=== PATIENT | female | born 1970 | race Caucasian/White ===

== ENCOUNTER → 2017-09-04 | Outpatient (CLI) | payer OTHER ==
[~2017-09-04] MED LIST: PREN1TAB49 PO
--- NOTE | 2017-09-04 10:42 | RADRPT ---
PROCEDURE: Left knee radiographs. CLINICAL INDICATION: Left knee pain. TECHNIQUE: 3 views. Weight bearing. Frontal, lateral, and oblique. The patient was unable to acco mplish sunrise view positioning. COMPARISON: 04/08/2016. FINDINGS: There is no fracture or dislocation. There is diffuse osteopenia. Articular surfaces are intact. There is no lytic or blastic lesion. There is no radiopaque foreign body. IMPRESSION: 1. Diffuse osteopenia. 2. Otherwise unremarkable images of the left knee. RPTAT: QQ .Pastor Andrew MD, MD Date Time Electronically viewed and signed by .Pastor Andrew MD, MD on 09/04/2017 10:42 .R/
--- NOTE | 2017-09-04 11:54 | HKNOTE ---
DATE OF SERVICE: 09/04/2017 CHIEF COMPLAINT: Left knee pain. HISTORY OF PRESENT ILLNESS: This is a 47-year-old female who states that approximately over one mon th ago she was walking down the stairs when she missed a step. She fell backwards. Her left kneeca p came out of place. EMS transported her to [facility]. They performed i maging of the knee. They gave her a knee immobilizer. She has been using crutches with a knee immo bilizer since that time. She denies any recent dislocation. She has had a previous dislocation sev eral years ago and saw Dr. Roque Smith previously. She is complaining of pain and stiffness of the left knee. She denies any groin or back pain. She has no other complaints. Gait: Antalgic gait with use of assistive devices. Left knee exam: There is an effusion of the left knee. There are no open wounds. She is tender ov er the medial and lateral joint lines. She has apprehension with patellar palpation. She has 0-20 degrees range of motion. Unable to perform Gracie and anterior and posterior drawer test due to li mited flexion. Motor strength is 5/5, hamstrings, tibialis anterior, gastrocsoleus and quadriceps. IMAGING: X-rays left knee, 3 views of the left knee demonstrate degenerative changes. There are no osteophytes. No fractures or dislocations. IMPRESSION: A 47-year-old female with recurrent left knee patellar dislocation. PLAN: I discussed findings with Mr. Fitzgerald. I explained to her that she has stiffness of her knee. She is currently authorized for physical therapy. I recommended outpatient physical therapy as we ll as home exercises. If she continues to have instability of the knee, I recommend follow up with an orthopedic sports surgeon. I recommend discontinuation of the knee immobilizer at this time. gayle can follow up with me as needed in the future. Dictated By: AURELIA VICTORIA/DOMINICK Conf#: [id number] DID#: [id number]
== END | disposition home or self-care (01) ==
LOC: HKI 10:16
PROVIDERS: ATTEND Orthopaedic Surgery Adult Reconstructive Orthopaedic Surgery
DX: M22.02 Recurrent dislocation of patella, left knee (principal)
CPT/HCPCS: 73564; Z7500; G0463

== ENCOUNTER 2018-06-20 13:52 | Day surgery (SDC) | END 2018-06-20 19:28 | disposition home or self-care (01) ==